=== PATIENT | female | born 1970 | race Caucasian/White ===

== ENCOUNTER 2020-11-18 17:48 | Emergency (ER) | payer OTHER ==
[~2020-11-18 17:48] MED LIST: FOLIC ACID1 MG PO; KEPPRA500 MG PO; NORCO 10-325 T1 EACH PO; NORCO 5-325 TA1 EACH PO; PENVEE K 500 M500 MG PO; RELAFEN 750 MG750 MG PO; SKELAXIN800 MG PO; TORADOL 10 MG T10 MG PO; TYLENOL 500 MG500 MG PO; VIBRAMYCIN100 MG PO
== END 2020-11-18 20:15 | disposition home or self-care (01) ==
LOC: ER1 17:48
DX: S90.121A Contusion of right lesser toe(s) without damage to nail, initial encounter (principal); F17.200 Nicotine dependence, unspecified, uncomplicated; W22.8XXA Striking against or struck by other objects, initial encounter
CPT/HCPCS: 73630; 99283; J1885